=== PATIENT | male | born 1945 | race Caucasian/White ===

== ENCOUNTER 2018-09-01 14:14 | Day surgery (SDC) | payer OTHER ==
[2018-08-31 17:58] VITALS: BMI 28.2
--- NOTE | 2018-09-01 17:34 | HP ---
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 History Source: Patient - Past Medical History Allergies/Adverse Reactions: Allergies Allergy/AdvReac Type Severity Reaction Status Date / Time No Known Allergies Allergy Verified 09/01/18 15:49 - Current Medications Current Medications: Home Medications Medication Instructions Recorded NK [No Known Home Medication] 08/31/18 Satellite Physical Exam - Physical Examination Vital Signs: Vital Signs Period Temp Pulse Resp BP Sys/Schroeder Pulse Ox Last 24 Hr 97.6 F 66 18 104/68 97 General Appearance: Well Nourished ENT: Clear Lung: Clear to auscultation Heart: Regular rate & rhythm Abdomen: Soft, No tenderness Extremities: No edema, Other (Varicose veins left medial calf.) Satellite Impression/Plan - Impression/Plan Impression: Painful varicose veins left leg Operative Procedure: Microphlebectomy left leg Date to be Performed: 09/01/18
[2018-09-01] MEDS ORDERED: PROPOFOL 20 ML ONE (18:13)
[2018-09-01] MEDS ORDERED: LIDOCAINE HCL/PF 2% SDV 5ML VIAL ONE (18:14)
[2018-09-01] MEDS ORDERED: DEXAMETHASONE SOD PHOSPHATE 4 MG/1 ML VIAL ONE (18:15)
[2018-09-01] MEDS ORDERED: ceFAZolin SODIUM 1 GM VIAL ONE (18:16)
[2018-09-01] MEDS ORDERED: ceFAZolin SODIUM 1 GM VIAL IVPB ONE (18:17)
--- NOTE | 2018-09-01 19:16 | OP ---
Operative Note - Note: Operative Date: 09/01/18 Pre-Operative Diagnosis: Painful Varicose veins Operation: Micophlebectomy left leg, > 20 incisions Findings: Multiple dilated veins in medial calf and thigh Post-Operative Diagnosis: Same as Pre-op Surgeon: Sherwin Concepcion Anesthesiologist/AUDIOVISUAL TECHNICIAN: River Solares Anesthesia: General Specimens Removed: pieces of vein
[2018-09-01] MEDS ORDERED: IBUPROFEN 600 MG TABLET (FP) PO PRN (19:17)
[2018-09-01] MEDS ORDERED: oxyCODONE HCL 5 MG TABLET PO PRN (19:23)
[2018-09-01] MEDS ORDERED: ONDANSETRON 4 MG/2 ML VIAL IVPUSH PRN (19:23)
[2018-09-01] MEDS ORDERED: LACTATED RINGERS SOLUTION 1,000 ML IV SCH (20:00)
[2018-09-01 21:25] VITALS: BP 142/73; PULSE 66; TEMP 97.4
--- NOTE | 2018-09-06 14:05 | OP ---
DATE OF OPERATION: 09/01/2018 SURGEON: Sherwin Morel MD PROCEDURE: Micro-phlebectomy of left leg with greater than 20 incisions. PREOPERATIVE DIAGNOSIS: Painful varicose veins. POSTOPERATIVE DIAGNOSIS: Painful varicose veins. ANESTHESIA: General. ANESTHESIOLOGIST: River Solares MD OPERATIVE FINDINGS: There were multiple dilated varicose veins along the medial aspect of the left thigh and calf. OPERATIVE PROCEDURE: Following routine patient identification, and side and site verification, general anesthesia was induced. The left leg was prepped with ChloraPrep. Prior to coming in the operating room, the varicose veins on the left leg were marked on the skin with marker with the patient standing. After prepping and draping, timeout was performed. A stab-avulsion technique was then used to remove all marked veins. In brief, an incision was made over the marked vein with a stillaguamish blade and the vein was elevated to level of the skin with a vein hook. It was grasped with clamps and gently retracted until the vein avulsed. Pressure was applied and the next more distal vein segment removed in a similar fashion until all of the marked veins had been removed. Leg was then elevated and washed with saline and dried. Xeroform gauze was applied to all the wounds and the leg was then dressed with dry gauze, Combine, Kerlix, Webril, and Coban. The patient was taken to the recovery room in stable condition. SHERWIN MOREL M.D. ESTEVAN/[id number]
--- NOTE | 2018-09-07 18:23 | PATH ---
Surgical Pathology Report Patient Name: SAMANTHA ROSALES Med. Rec. #: [id number] /Age/Gender: 1945 (Age: 72) / M Account: [id number] Location: [facility] Taken: 09/01/2018 Received: 09/04/2018 Reported: 09/07/2018 Physicians: Sherwin Concepcion M.D. Specimen(s) Received PORTION OF VEIN FROM LEFT LEG Clinical History Varicose veins Final Diagnosis VARICOSE VEINS, LEG, LEFT, MICROPHLEBECTOMY: VEINS WITH MILD INTIMAL HYPERTROPHY. Electronically Signed Rain Argueta M.D. Gross Description Received in formalin labeled "portion of vein from left leg" are multiple white-patel soft tissue consistent with veins measuring 2 x 2 x 0.5 cm in aggregate. Bow Maker Gift Wrapping sections submitted in one cassette. MLSZ/09/04/2018 sanlima/09/04/2018
== END 2018-09-01 21:50 | disposition home or self-care (01) ==
LOC: JASU-SURG 14:14
PROVIDERS: ATTEND Surgery
PROC: 06DY0ZZ Extraction of Lower Vein, Open Approach (ICD-10-PCS; principal; 2018-09-01 16:00)
DX: I83.812 Varicose veins of left lower extremity with pain (principal)
CPT/HCPCS: 82962; 88304-TC; 94760

== ENCOUNTER 2021-09-18 09:19 | Inpatient (IN) | payer OTHER ==
[2021-09-18 09:27] VITALS: BMI 28.0
[2021-09-18 10:07] LABS: BASO % 0.4 % (0-2.0); EOS % 0.3 % (0-4.5); HEMATOCRIT 42.2 % (35.4-49); HEMOGLOBIN 13.9 GM/dL (11.7-16.9); LYMPH % 8.9 % (8-40); MCH 30.8 pg (25.7-33.7); MCHC 32.9 g/dl (32.0-35.9); MEAN CELL VOLUME 93.8 fl (80-96); MONO % 8.1 % (3.8-10.2); NEUT % 82.3 % (42.8-82.8); PLATELET COUNT 164 10^3/uL (134-434); RDW 14.6 % (11.9-15.9)
[2021-09-18 10:19] LABS: INR 1.09 (0.83-1.09); PROTHROMBIN TIME (PATIENT) 12.6 SEC (9.7-13.0)
[2021-09-18 10:22] LABS: ACTIVATED PTT 27.8 SECONDS (25.2-36.5)
[2021-09-18 10:37] LABS: CALCIUM 8.7 mg/dL (8.5-10.1)
[2021-09-18 10:38] LABS: ALBUMIN 3.5 g/dl (3.4-5.0); BLOOD UREA NITROGEN 19.3 mg/dL (7-18)
[2021-09-18 10:42] LABS: BILIRUBIN,TOTAL 0.8 mg/dL (0.2-1)
[2021-09-18 10:43] LABS: TOT PROT 6.6 g/dl (6.4-8.2)
[2021-09-18 10:46] LABS: N-TERMINAL BNP 50.3 pg/ml (5-125)
[2021-09-18] MEDS ORDERED: ACETAMINOPHEN 325 MG TABLET (FP) PO PRN (12:14)
[2021-09-18] MEDS ORDERED: SODIUM CHLORIDE 1,000 ML IV SCH (12:15)
[2021-09-18] MEDS ORDERED: ENOXAPARIN NA (PORCINE) 40 MG/0.4 ML DISP.SYRIN SQ SCH (12:30)
[2021-09-18] MEDS ORDERED: ATORVASTATIN CA 80 MG TABLET (FP) PO ONE (13:00)
[2021-09-18] MEDS ORDERED: HEPARIN NA (PORCINE) 5,000 UNITS/ML 1ML VIAL IVPUSH PRN ×2 (14:49)
[2021-09-18] MEDS ORDERED: HEPARIN NA (PORCINE) 5,000 UNITS/ML 1ML VIAL IVPUSH ONE (14:49)
[2021-09-18] MEDS ORDERED: CLOPIDOGREL BISULFATE 75 MG TABLET (FP) PO SCH (15:00)
[2021-09-18] MEDS ORDERED: CLOPIDOGREL BISULFATE 300 MG TABLET PO ONE (15:00)
[2021-09-18] MEDS ORDERED: HEPARIN INFUSION - 25,000 UNITS/500 ML INFUS.BAG IVPB SCH (15:00)
[2021-09-18] MEDS ORDERED: HEPARIN INFUSION - 25,000 UNITS/500 ML INFUS.BAG IVPB ONE (16:15)
[2021-09-18] MEDS ORDERED: INSULIN SLIDING SCALE (NOVOLOG) 1 VIAL SQ SCH (16:30)
[2021-09-18 16:33] VITALS: PULSE 60
[2021-09-18 17:57] VITALS: BP 135/75; TEMP 98.3
[2021-09-18] MEDS ORDERED: METOPROLOL TARTRATE 25 MG TABLET (FP) PO SCH ×2 (22:00)
[2021-09-19] MEDS ORDERED: CLOPIDOGREL BISULFATE 75 MG TABLET (FP) PO SCH (10:00)
[2021-09-19] MEDS ORDERED: ASPIRIN 81 MG CHEWABLE TABLETS PO SCH (10:00)
[2021-09-19] MEDS ORDERED: ATORVASTATIN CA 40 MG TABLET (FP) PO SCH (22:00)
== END 2021-09-18 17:57 | disposition short-term general hospital (02) | DRG 282 ==
LOC: JER 09:19 → JERBED 09:53 → OBSVTOIN 15:31
PROVIDERS: ADMIT Internal Medicine; ATTEND Internal Medicine
DX: I21.4 Non-ST elevation (NSTEMI) myocardial infarction (principal); I45.10 Unspecified right bundle-branch block; E78.5 Hyperlipidemia, unspecified; G47.30 Sleep apnea, unspecified; E11.9 Type 2 diabetes mellitus without complications; I25.10 Atherosclerotic heart disease of native coronary artery without angina pectoris; I87.2 Venous insufficiency (chronic) (peripheral)
CPT/HCPCS: 36415; 71045-TC-FY; 80053; 80061; 82550; 82962; 83036; 83880; 84484; 85025; 85610; 85730; 93005; 93010; 93306-TC; 99285-25; C9803-CS; G0378; J1644; U0003; U0005

== ENCOUNTER 2022-11-24 10:39 | Inpatient (IN) | payer OTHER ==
[2022-11-24 10:57] VITALS: BMI 28.2
[2022-11-24 13:10] LABS: BASO % 0.8 % (0-2.0); EOS % 1.1 % (0-4.5); HEMATOCRIT 42.7 % (35.4-49); HEMOGLOBIN 14.1 GM/dL (11.7-16.9); MCH 30.6 pg (25.7-33.7); MCHC 33.1 g/dl (32.0-35.9); MEAN CELL VOLUME 92.5 fl (80-96); MEAN PLT VOLUME 9.1 fl (7.5-11.1); MONO % 10.6 % (3.8-10.2); NEUT % 66.5 % (42.8-82.8); PLATELET COUNT 194 10^3/uL (134-434); RBC 4.61 M/mm3 (4.00-5.60); RDW 15.5 % (11.9-15.9); WHITE BLOOD COUNT 7.9 K/mm3 (4.0-10.0)
[2022-11-24 13:31] LABS: INR 1.06 (0.83-1.09); PROTHROMBIN TIME (PATIENT) 12.3 SEC (9.7-13.0)
[2022-11-24 13:33] LABS: ALBUMIN 3.7 g/dl (3.4-5.0); CALCIUM 8.9 mg/dL (8.5-10.1)
[2022-11-24 13:34] LABS: ACTIVATED PTT 28.3 SECONDS (25.2-36.5)
[2022-11-24 13:37] LABS: TOT PROT 7.4 g/dl (6.4-8.2)
[2022-11-24 13:41] LABS: N-TERMINAL BNP 45.1 pg/ml (5-125)
[2022-11-24 16:10] LABS: CHOLESTEROL 143 mg/dL (50-200); TRIGLYCERIDES 109 mg/dL (0-150)
[2022-11-24 16:11] LABS: LDL CHOLESTEROL (ONLY SJRH) 68 mg/dL (5-100)
[2022-11-24 16:13] LABS: HDL CHOLESTEROL 59 mg/dL (40-60)
[2022-11-24] MEDS ORDERED: NITROGLYCERIN SUBLINGUAL 1/150 0.4 MG TAB SL PRN (19:15)
[2022-11-24] MEDS ORDERED: ALBUTEROL SO4 HFA INHALER IH PRN (22:00)
[2022-11-24] MEDS ORDERED: ATORVASTATIN CA 80 MG TABLET (FP) ONE (22:34)
[2022-11-24] MEDS: INSULIN SLIDING SCALE (NOVOLOG) 1 VIAL SQ SCH (22:39)
[2022-11-24] MEDS: ATORVASTATIN CA 80 MG TABLET (FP) PO SCH (22:39)
[2022-11-25] MEDS: INSULIN SLIDING SCALE (NOVOLOG) 1 VIAL SQ SCH ×4 (06:07→21:38)
[2022-11-25 08:08] LABS: BASO % 0.4 % (0-2.0); HEMATOCRIT 41.5 % (35.4-49); HEMOGLOBIN 13.5 GM/dL (11.7-16.9); LYMPH % 22.3 % (8-40); MCH 29.6 pg (25.7-33.7); MCHC 32.5 g/dl (32.0-35.9); MEAN CELL VOLUME 91.1 fl (80-96); MONO % 13.7 % (3.8-10.2); NEUT % 60.6 % (42.8-82.8); PLATELET COUNT 167 10^3/uL (134-434); RBC 4.56 M/mm3 (4.00-5.60); RDW 15.2 % (11.9-15.9)
[2022-11-25 08:39] LABS: ALBUMIN 3.2 g/dl (3.4-5.0)
[2022-11-25 08:40] LABS: BLOOD UREA NITROGEN 21.2 mg/dL (7-18)
[2022-11-25 08:41] LABS: CALCIUM 8.4 mg/dL (8.5-10.1)
[2022-11-25 08:42] LABS: MAGNESIUM 1.7 mg/dL (1.8-2.4); PHOSPHOROUS 2.4 mg/dL (2.5-4.9)
[2022-11-25 08:44] LABS: TOT PROT 6.6 g/dl (6.4-8.2)
[2022-11-25] MEDS: FAMOTIDINE 20 MG TABLET PO SCH (09:46)
[2022-11-25] MEDS: CLOPIDOGREL BISULFATE 75 MG TABLET (FP) PO SCH (09:47)
[2022-11-25] MEDS: FUROSEMIDE 40 MG TABLET (FP) PO SCH (09:48)
[2022-11-25] MEDS: ENOXAPARIN NA (PORCINE) 40 MG/0.4 ML DISP.SYRIN SQ SCH (09:48)
[2022-11-25] MEDS: ASPIRIN 81 MG CHEWABLE TABLETS PO SCH (09:48)
[2022-11-25] MEDS: LISINOPRIL 5 MG TABLET PO SCH (09:48)
[2022-11-25] MEDS ORDERED: MAGNESIUM OXIDE 400 MG TABLET (FP) PO ONE ×2 (10:26→13:19)
[2022-11-25] MEDS ORDERED: MAGNESIUM SULFATE IN WATER 4 GM/50 ML BAG IVPB ONE (11:00)
[2022-11-25] MEDS ORDERED: MAGNESIUM 4GM/H20 - 4 GM/100 ML IVPB IVPB ONE (11:01)
[2022-11-25] MEDS ORDERED: MAGNESIUM SULF 50% (8.12 MEQ/2 ML-1 GM VIAL) IVPB ONE (13:17)
[2022-11-25] MEDS ORDERED: NAPH,MB-DB/K PH,MBDB POWDER PACKET PO ONE (20:22)
[2022-11-25] MEDS: ATORVASTATIN CA 80 MG TABLET (FP) PO SCH (21:38)
[2022-11-26] MEDS: INSULIN SLIDING SCALE (NOVOLOG) 1 VIAL SQ SCH ×4 (06:26→21:30)
[2022-11-26 08:54] LABS: HEMATOCRIT 41.6 % (35.4-49); HEMOGLOBIN 13.8 GM/dL (11.7-16.9); MCH 30.5 pg (25.7-33.7); MCHC 33.2 g/dl (32.0-35.9); MEAN CELL VOLUME 91.8 fl (80-96); MEAN PLT VOLUME 9.8 fl (7.5-11.1); PLATELET COUNT 188 10^3/uL (134-434); RBC 4.54 M/mm3 (4.00-5.60); RDW 15.1 % (11.9-15.9); WHITE BLOOD COUNT 6.4 K/mm3 (4.0-10.0)
[2022-11-26 09:21] LABS: PHOSPHOROUS 2.9 mg/dL (2.5-4.9)
[2022-11-26] MEDS: ENOXAPARIN NA (PORCINE) 40 MG/0.4 ML DISP.SYRIN SQ SCH (12:49)
[2022-11-26] MEDS: LISINOPRIL 5 MG TABLET PO SCH (12:50)
[2022-11-26] MEDS: ASPIRIN 81 MG CHEWABLE TABLETS PO SCH (12:50)
[2022-11-26] MEDS: CLOPIDOGREL BISULFATE 75 MG TABLET (FP) PO SCH (12:51)
[2022-11-26] MEDS: FUROSEMIDE 40 MG TABLET (FP) PO SCH (12:51)
[2022-11-26] MEDS: FAMOTIDINE 20 MG TABLET PO SCH (12:51)
[2022-11-26] MEDS: ATORVASTATIN CA 80 MG TABLET (FP) PO SCH (21:30)
[2022-11-27] MEDS: INSULIN SLIDING SCALE (NOVOLOG) 1 VIAL SQ SCH ×4 (06:24→21:58)
[2022-11-27] MEDS: LISINOPRIL 5 MG TABLET PO SCH (09:09)
[2022-11-27] MEDS: CLOPIDOGREL BISULFATE 75 MG TABLET (FP) PO SCH (09:10)
[2022-11-27] MEDS: ENOXAPARIN NA (PORCINE) 40 MG/0.4 ML DISP.SYRIN SQ SCH (09:10)
[2022-11-27] MEDS: FAMOTIDINE 20 MG TABLET PO SCH (09:10)
[2022-11-27] MEDS: ASPIRIN 81 MG CHEWABLE TABLETS PO SCH (09:10)
[2022-11-27] MEDS: FUROSEMIDE 40 MG TABLET (FP) PO SCH (09:10)
[2022-11-27] MEDS: ATORVASTATIN CA 80 MG TABLET (FP) PO SCH (21:59)
[2022-11-28] MEDS: INSULIN SLIDING SCALE (NOVOLOG) 1 VIAL SQ SCH ×4 (06:03→21:36)
[2022-11-28] MEDS: LISINOPRIL 5 MG TABLET PO SCH (09:05)
[2022-11-28] MEDS: CLOPIDOGREL BISULFATE 75 MG TABLET (FP) PO SCH (09:05)
[2022-11-28] MEDS: FUROSEMIDE 40 MG TABLET (FP) PO SCH (09:05)
[2022-11-28] MEDS: ASPIRIN 81 MG CHEWABLE TABLETS PO SCH (09:06)
[2022-11-28] MEDS: FAMOTIDINE 20 MG TABLET PO SCH (09:06)
[2022-11-28] MEDS: ENOXAPARIN NA (PORCINE) 40 MG/0.4 ML DISP.SYRIN SQ SCH (09:06)
[2022-11-28] MEDS: ATORVASTATIN CA 80 MG TABLET (FP) PO SCH (21:37)
[2022-11-29] MEDS: INSULIN SLIDING SCALE (NOVOLOG) 1 VIAL SQ SCH ×4 (06:10→21:10)
[2022-11-29] MEDS: FUROSEMIDE 40 MG TABLET (FP) PO SCH (09:10)
[2022-11-29] MEDS: ASPIRIN 81 MG CHEWABLE TABLETS PO SCH (09:10)
[2022-11-29] MEDS: LISINOPRIL 5 MG TABLET PO SCH (09:10)
[2022-11-29] MEDS: CLOPIDOGREL BISULFATE 75 MG TABLET (FP) PO SCH (09:11)
[2022-11-29] MEDS: ENOXAPARIN NA (PORCINE) 40 MG/0.4 ML DISP.SYRIN SQ SCH (09:11)
[2022-11-29] MEDS: FAMOTIDINE 20 MG TABLET PO SCH (09:11)
[2022-11-29] MEDS: ATORVASTATIN CA 80 MG TABLET (FP) PO SCH (21:10)
[2022-11-30] MEDS: INSULIN SLIDING SCALE (NOVOLOG) 1 VIAL SQ SCH ×4 (06:08→21:28)
[2022-11-30 09:14] LABS: CALCIUM 8.6 mg/dL (8.5-10.1)
[2022-11-30 09:15] LABS: BLOOD UREA NITROGEN 27.4 mg/dL (7-18)
[2022-11-30 09:18] LABS: CREATININE 0.9 mg/dL (0.55-1.3)
[2022-11-30] MEDS: LISINOPRIL 5 MG TABLET PO SCH (09:27)
[2022-11-30] MEDS: ASPIRIN 81 MG CHEWABLE TABLETS PO SCH (09:28)
[2022-11-30] MEDS: FAMOTIDINE 20 MG TABLET PO SCH (09:28)
[2022-11-30] MEDS: CLOPIDOGREL BISULFATE 75 MG TABLET (FP) PO SCH (09:28)
[2022-11-30] MEDS: FUROSEMIDE 40 MG TABLET (FP) PO SCH (09:29)
[2022-11-30] MEDS: ENOXAPARIN NA (PORCINE) 40 MG/0.4 ML DISP.SYRIN SQ SCH (09:29)
[2022-11-30] MEDS: ATORVASTATIN CA 80 MG TABLET (FP) PO SCH (21:28)
[2022-12-01] MEDS: INSULIN SLIDING SCALE (NOVOLOG) 1 VIAL SQ SCH ×2 (06:31→11:42)
[2022-12-01 08:43] VITALS: RESP 20
[2022-12-01] MEDS: FAMOTIDINE 20 MG TABLET PO SCH (09:54)
[2022-12-01] MEDS: LISINOPRIL 5 MG TABLET PO SCH (09:54)
[2022-12-01] MEDS: ENOXAPARIN NA (PORCINE) 40 MG/0.4 ML DISP.SYRIN SQ SCH (09:54)
[2022-12-01] MEDS: ASPIRIN 81 MG CHEWABLE TABLETS PO SCH (09:54)
[2022-12-01] MEDS: CLOPIDOGREL BISULFATE 75 MG TABLET (FP) PO SCH (09:55)
[2022-12-01] MEDS: FUROSEMIDE 40 MG TABLET (FP) PO SCH (09:55)
[2022-12-01 14:03] VITALS: BP 122/71; PULSE 75; TEMP 98
== END 2022-12-01 18:59 | disposition short-term general hospital (02) | DRG 303 ==
LOC: JER 10:39 → JERBED 16:18 → J4S 11-25 00:24 → OBSVTOIN 11-29 13:46
PROVIDERS: ADMIT Internal Medicine; ATTEND Internal Medicine
DX: I25.118 Atherosclerotic heart disease of native coronary artery with other forms of angina pectoris (principal); J84.9 Interstitial pulmonary disease, unspecified; E11.9 Type 2 diabetes mellitus without complications; E78.5 Hyperlipidemia, unspecified; G47.30 Sleep apnea, unspecified; I10 Essential (primary) hypertension; R07.89 Other chest pain; Z95.5 Presence of coronary angioplasty implant and graft; E83.42 Hypomagnesemia; I45.10 Unspecified right bundle-branch block; G47.33 Obstructive sleep apnea (adult) (pediatric)
CPT/HCPCS: 36415; 71046-TC-FY; 78452-TC; 80048; 80053; 80061; 82962; 83036; 83735; 83880; 84100; 84443; 84484; 85025; 85027; 85610; 85730; 93005; 93010; 93017; 93306-TC; 94010; 97116-GP; 97161-GP; 99285-25; A9502; C9803-CS; G0378; U0003; U0005

== ENCOUNTER 2024-08-27 10:19 | Observation (INO) | payer OTHER ==
[2024-08-27 12:16] LABS: BASO % 0.3 % (0-2.0); EOS % 0.3 % (0-4.5); HEMATOCRIT 44.4 % (35.4-49); MCH 32.4 pg (25.7-33.7); MCHC 33.7 g/dl (32.0-35.9); MEAN CELL VOLUME 96.2 fl (80-96); MEAN PLT VOLUME 9.1 fl (7.5-11.1); MONO % 13.2 % (3.8-10.2); NEUT % 67.2 % (42.8-82.8); PLATELET COUNT 176 10^3/uL (134-434); RBC 4.62 M/mm3 (4.00-5.60); RDW 16.8 % (11.9-15.9); WHITE BLOOD COUNT 7.2 K/mm3 (4.0-10.0)
[2024-08-27 12:44] LABS: POTASSIUM 4.3 mmol/L (3.5-5.1)
[2024-08-27 12:46] LABS: ALBUMIN 2.7 g/dl (3.4-5.0); CALCIUM 8.8 mg/dL (8.5-10.1)
[2024-08-27 12:47] LABS: BLOOD UREA NITROGEN 23.6 mg/dL (7-18)
[2024-08-27] MEDS: LACTATED RINGERS SOLUTION 1000 ML INFUS.BAG IV ONE (12:49)
[2024-08-27 12:51] LABS: BILIRUBIN,TOTAL 1.4 mg/dL (0.2-1); TOT PROT 5.6 g/dl (6.4-8.2)
[2024-08-27] MEDS ORDERED: VANCOMYCIN 1 GM PREMIX (F) 1 GM/200 ML BAG ONE (12:53)
[2024-08-27] MEDS ORDERED: PIPERACILLIN/TAZOB 4.5 GM 4.5 GM/100 ML BAG IVPB ONE (12:53)
[2024-08-27 13:04] LABS: URINE APPEARANCE CLEAR; URINE BILIRUBIN NEGATIVE (NEGATIVE); URINE COLOR DK YELLOW; URINE GLUCOSE (UA) 2+ (NEGATIVE); URINE KETONE 1+ (NEGATIVE); URINE LEUK ESTERASE NEGATIVE (NEGATIVE); URINE NITRITE NEGATIVE (NEGATIVE); URINE PROTEIN TRACE (NEGATIVE)
[2024-08-27] MEDS: PIPERACILLIN/TAZOB 4.5 GM 4.5 GM in DEXTROSE 5%-WATER 100 ML IVPB ONE (13:11)
[2024-08-27 13:16] LABS: LACTIC ACID 2.5 mmol/L (0.4-2.0)
[2024-08-27 13:19] LABS: VENOUS BASE EXCESS 0.4 mmol/L (-2-2); VENOUS O2 SATURATION 46.5 % (70-80); VENOUS PCO2 42.3 mmHg (38-52); VENOUS PH 7.397 (7.310-7.410)
[2024-08-27 13:29] LABS: INR 0.98 (0.83-1.09); PROTHROMBIN TIME (PATIENT) 11.3 SEC (9.7-13.0)
[2024-08-27 13:31] LABS: ACTIVATED PTT 27.6 SECONDS (25.2-36.5)
[2024-08-27] MEDS: VANCOMYCIN 1,000 MG in DEXTROSE 5%-WATER - 250 ML IVPB ONE (15:19)
[2024-08-27] MEDS ORDERED: NITROGLYCERIN SUBLINGUAL 1/150 0.4 MG TAB SL PRN (15:37)
[2024-08-27] MEDS ORDERED: SENNOSIDES 8.6MG TABLET (FP) PO ONE (16:27)
[2024-08-27] MEDS ORDERED: ASPIRIN 81 MG CHEWABLE TABLETS ONE (16:27)
[2024-08-27] MEDS ORDERED: predniSONE 20 MG TABLET (UD) ONE (16:27)
[2024-08-27] MEDS ORDERED: SULFAMETHOXAZOLE/TRIMETHOPRIM 800MG/160MG D.S. TABLET ONE (16:27)
[2024-08-27] MEDS ORDERED: TAMSULOSIN HCL 0.4 MG CAP ONE (16:28)
[2024-08-27] MEDS: SENNOSIDES 8.6MG TABLET (FP) PO ONE (16:46)
[2024-08-27] MEDS: MINERAL OIL ENEMA 133 ML ENEMA RC ONE (16:46)
[2024-08-27] MEDS: SULFAMETHOXAZOLE/TRIMETHOPRIM 800MG/160MG D.S. TABLET PO SCH (17:00)
[2024-08-27] MEDS: ASPIRIN 81 MG CHEWABLE TABLETS PO SCH (17:00)
[2024-08-27] MEDS: TAMSULOSIN HCL 0.4 MG CAP PO ONE (17:01)
[2024-08-27] MEDS: predniSONE 20 MG TABLET (UD) PO ONE (17:01)
[2024-08-27] MEDS ORDERED: NINTEDANIB ESYLATE 100 MG PO SCH (22:00)
[2024-08-27] MEDS: ATORVASTATIN CA 80 MG TABLET (FP) PO SCH (22:28)
[2024-08-28] MEDS: azaTHIOprine 50 MG TABLET PO SCH (00:03)
[2024-08-28 07:51] LABS: BASO % 0.1 % (0-2.0); EOS % 0.1 % (0-4.5); HEMATOCRIT 38.5 % (35.4-49); HEMOGLOBIN 13.2 GM/dL (11.7-16.9); LYMPH % 12.5 % (8-40); MCH 32.6 pg (25.7-33.7); MCHC 34.3 g/dl (32.0-35.9); MEAN PLT VOLUME 9.3 fl (7.5-11.1); MONO % 9.7 % (3.8-10.2); NEUT % 77.6 % (42.8-82.8); PLATELET COUNT 196 10^3/uL (134-434); RBC 4.05 M/mm3 (4.00-5.60); RDW 17.1 % (11.9-15.9); WHITE BLOOD COUNT 6.5 K/mm3 (4.0-10.0)
[2024-08-28 08:15] LABS: POTASSIUM 4.7 mmol/L (3.5-5.1)
[2024-08-28 08:19] LABS: BLOOD UREA NITROGEN 16.5 mg/dL (7-18); CALCIUM 8.2 mg/dL (8.5-10.1)
[2024-08-28] MEDS: predniSONE 20 MG TABLET (UD) PO SCH (09:45)
[2024-08-28] MEDS: DOCUSATE SODIUM 100 MG CAPSULE (FP) PO SCH (09:45)
[2024-08-28] MEDS: TAMSULOSIN HCL 0.4 MG CAP PO SCH ×2 (09:45→19:16)
[2024-08-28] MEDS: CEFTRIAXONE 1 G/50 ML PREMIX 50 ML IVPB SCH (09:46)
[2024-08-28] MEDS: FLU VACCINE (FLULAVAL) PF 45 MCG/0.5 ML SYRINGE 2024-2025 IM ONE (09:47)
[2024-08-28] MEDS ORDERED: MAG HYDROX/AL HYDROX/SIMETH 30 ML UNIT-DOSE CUP PO PRN (11:19)
[2024-08-28 11:57] LABS: BILIRUBIN,DIRECT 0.4 mg/dL (0.0-0.2)
[2024-08-28] MEDS: INSULIN ASPART SLIDING SCALE (NOVOLOG) 1 VIAL SQ SCH (12:02)
[2024-08-28] MEDS: PANTOPRAZOLE 40 MG TABLET PO SCH (12:03)
[2024-08-28 14:23] VITALS: BMI 23.2
[2024-08-28] MEDS: PEG 3350/NA SULF BICARB CL/KCL 4000 ML SOLN.RECON PO ONE (14:38)
[2024-08-28 15:30] LABS: N-TERMINAL BNP 74.4 pg/ml (5-450)
[2024-08-28] MEDS: NINTEDANIB ESYLATE 100 MG PO SCH (22:44)
[2024-08-29 07:55] LABS: BASO % 0.4 % (0-2.0); EOS % 0.9 % (0-4.5); HEMATOCRIT 34.7 % (35.4-49); HEMOGLOBIN 11.7 GM/dL (11.7-16.9); LYMPH % 24.5 % (8-40); MCH 32.2 pg (25.7-33.7); MCHC 33.8 g/dl (32.0-35.9); MEAN CELL VOLUME 95.2 fl (80-96); MEAN PLT VOLUME 9.1 fl (7.5-11.1); MONO % 13.3 % (3.8-10.2); NEUT % 60.9 % (42.8-82.8); PLATELET COUNT 207 10^3/uL (134-434); RBC 3.64 M/mm3 (4.00-5.60); RDW 16.8 % (11.9-15.9); WHITE BLOOD COUNT 6.5 K/mm3 (4.0-10.0)
[2024-08-29 08:14] LABS: POTASSIUM 4.4 mmol/L (3.5-5.1)
[2024-08-29 08:26] LABS: ALBUMIN 2.4 g/dl (3.4-5.0)
[2024-08-29 08:31] LABS: TOT PROT 4.8 g/dl (6.4-8.2)
[2024-08-29 10:53] LABS: LACTIC ACID 4.6 mmol/L (0.4-2.0)
[2024-08-29] MEDS: SODIUM CHLORIDE 500 ML IV STA (13:33)
[2024-08-29] MEDS: SODIUM CHLORIDE 1,000 ML IV SCH (17:27)
[2024-08-29 20:35] LABS: LACTIC ACID 2.9 mmol/L (0.4-2.0)
[2024-08-30 07:55] LABS: HEMATOCRIT 30.9 % (35.4-49); HEMOGLOBIN 10.3 GM/dL (11.7-16.9); MCH 32.1 pg (25.7-33.7); MCHC 33.2 g/dl (32.0-35.9); MEAN CELL VOLUME 96.7 fl (80-96); PLATELET COUNT 184 10^3/uL (134-434); RDW 16.9 % (11.9-15.9); WHITE BLOOD COUNT 5.3 K/mm3 (4.0-10.0)
[2024-08-30 08:16] LABS: POTASSIUM 4.3 mmol/L (3.5-5.1)
[2024-08-30 08:22] LABS: ALBUMIN 2.3 g/dl (3.4-5.0); CALCIUM 7.9 mg/dL (8.5-10.1)
[2024-08-30 08:23] LABS: BLOOD UREA NITROGEN 9.5 mg/dL (7-18); MAGNESIUM 1.9 mg/dL (1.8-2.4)
[2024-08-30 08:26] LABS: PHOSPHOROUS 1.6 mg/dL (2.5-4.9)
[2024-08-30 08:27] LABS: BILIRUBIN,TOTAL 0.7 mg/dL (0.2-1)
[2024-08-30 08:28] LABS: TOT PROT 4.4 g/dl (6.4-8.2)
[2024-08-30 10:52] LABS: LACTIC ACID 5.6 mmol/L (0.4-2.0)
[2024-08-30 17:26] LABS: LACTIC ACID 3.1 mmol/L (0.4-2.0)
[2024-08-31 07:56] LABS: HEMATOCRIT 31.9 % (35.4-49); HEMOGLOBIN 10.8 GM/dL (11.7-16.9); MCH 32.7 pg (25.7-33.7); MCHC 33.9 g/dl (32.0-35.9); MEAN CELL VOLUME 96.2 fl (80-96); MEAN PLT VOLUME 8.9 fl (7.5-11.1); PLATELET COUNT 184 10^3/uL (134-434); RBC 3.32 M/mm3 (4.00-5.60); RDW 17.2 % (11.9-15.9); WHITE BLOOD COUNT 6.2 K/mm3 (4.0-10.0)
[2024-08-31 08:21] LABS: POTASSIUM 3.4 mmol/L (3.5-5.1)
[2024-08-31 08:42] LABS: CALCIUM 7.7 mg/dL (8.5-10.1)
[2024-08-31 08:43] LABS: ALBUMIN 2.3 g/dl (3.4-5.0); BLOOD UREA NITROGEN 5.5 mg/dL (7-18); MAGNESIUM 1.7 mg/dL (1.8-2.4)
[2024-08-31 08:44] LABS: CREATININE 0.9 mg/dL (0.55-1.3)
[2024-08-31 08:45] LABS: PHOSPHOROUS 1.6 mg/dL (2.5-4.9)
[2024-08-31 08:46] LABS: BILIRUBIN,TOTAL 0.8 mg/dL (0.2-1); TOT PROT 4.4 g/dl (6.4-8.2)
[2024-08-31] MEDS: MAGNESIUM SULFATE IN WATER 2 GM/50 ML IVPB IVPB ONE (11:16)
[2024-08-31 11:45] VITALS: RESP 19
[2024-08-31] MEDS: POTASSIUM PHOSPHATE 30 MM in SODIUM CHLORIDE 500 ML IVPB ONE (12:30)
[2024-08-31 15:08] VITALS: BP 127/81; PULSE 117; TEMP 97.2
== END 2024-08-31 18:10 | disposition home or self-care (01) ==
LOC: JER 10:19 → INTOOBSV 14:49 → UNDOADMOB 14:49 → JERBED 14:49 → J4W 17:59
PROVIDERS: ADMIT Internal Medicine; ATTEND Internal Medicine
PROC: 0T9B7ZZ Drainage of Bladder, Via Natural or Artificial Opening (ICD-10-PCS; principal; 2024-08-27)
PROC: 3E03329 Introduction of Other Anti-infective into Peripheral Vein, Percutaneous Approach (ICD-10-PCS; 2024-08-27)
PROC: 3E0337Z Introduction of Electrolytic and Water Balance Substance into Peripheral Vein, Percutaneous Approach (ICD-10-PCS; 2024-08-27)
DX: K92.2 Gastrointestinal hemorrhage, unspecified (principal); K62.5 Hemorrhage of anus and rectum; K56.41 Fecal impaction; K22.89 Other specified disease of esophagus; R33.9 Retention of urine, unspecified; K59.00 Constipation, unspecified; I25.118 Atherosclerotic heart disease of native coronary artery with other forms of angina pectoris; I25.2 Old myocardial infarction; E11.9 Type 2 diabetes mellitus without complications; G47.30 Sleep apnea, unspecified; I10 Essential (primary) hypertension; E78.5 Hyperlipidemia, unspecified; R07.9 Chest pain, unspecified; J84.10 Pulmonary fibrosis, unspecified; N40.0 Benign prostatic hyperplasia without lower urinary tract symptoms; Z95.5 Presence of coronary angioplasty implant and graft; Z79.84 Long term (current) use of oral hypoglycemic drugs
CPT/HCPCS: 0241U-QW; 36415; 51702; 71045-TC-FY; 74174-TC; 80048; 80053; 81003; 82248; 82272; 82803; 82962; 82977; 83036; 83605; 83735; 83880; 84100; 84443; 84484; 85025; 85027; 85610; 85730; 86704; 86708; 86803; 86850; 86900; 86901; 87040; 87086; 87340; 87517; 93005; 93010; 93306-TC; 96365; 96366; 96367; 96375; 97116-GP; 97162-GP; 99285-25; G0378